=== PATIENT | male | born 1940 | race Caucasian/White ===

== ENCOUNTER 2022-09-25 13:11 | Outpatient (RCR) | payer MEDICARE, SELFPAY ==
--- NOTE | 2022-09-25 15:35 | PTOPEVAL1 ---
Assessment and note entered by Naomy Casas, PT Evaluation Information Assessment Status Evaluation Diagnosis Vertigo, deconditioned Onset 09/25/22 Subjective Information Javier Rodriguez reports he has been getting dizzy when he bends over or gets up out of his recliner. He also notes weakness in his legs and unsteadiness when he is walking. He does not use an assistive device. He has fallen a few times. He fell last night when he bent over to pick something up. He fell from a bent forward position to his knees and did not get injured. He had a cardiac stent placed about 6 months ago and had a fall when coming home after the stent was placed due to blood pressure. Reported Pain Level Pain Score 0: Self Report Assessment PT Clinical Summary Javier Rodriguez presents with c/o dizziness when he stands up or bends over as well as weakness and unsteadiness in his legs. He has had 2-3 falls due to the symptoms. He demonstrates weakness in bilateral hip and knee muscles, decreased core strength, decreased balance, and vertigo symptoms with left Colleen Hallpike test. He also presents with a change of >20 mmHg in systolic blood pressure when transitioning from sitting to standing indicating possible orthostatic hypotension. His Tinetti balance scores indicates he is a high fall risk. He will benefit from skilled PT for positional treatments for positional vertigo, balance training, LE and core strengthening, and education for safety with transfers and fall hazards. Plan of Care Interventions Manual Therapy,Neuro Re-education,Patient/ Caregiver Educati,Therapeutic Activities, Therapeutic Exercise,Other Other Interventions vestibular rehabilitation PT Services Indicated Yes Treatment Frequency and 2 times a week for 10 visits Duration These treatments will address the objective and functional deficits as defined above. The patient will be advanced safely and appropriately in order for the patient to progress towards his/her prior level of function. Additional exercises will be introduced and as well as a comprehensive home exercise program upon discharge, if needed, ?to ensure carryover of functional gains achieved in the clinic. This treatment plan has been reviewed and agreement upon by the patient.
--- NOTE | 2022-10-28 14:27 | PTOPPROG ---
Assessment and note entered by Naomy Casas, PT Evaluation Information Assessment Status Progress Diagnosis Vertigo, deconditioned Onset 09/25/22 Subjective Information Javier Rodriguez reports he feels like his legs are getting stronger but he is still getting dizzy when he gets up too fast. He feels he has less dizziness when turning his head since starting PT as well. He has not had any falls in the last couple weeks. He feels like he needs to continue PT to further improve his leg strength, endurance, and balance. Assessment PT Clinical Summary Javier Rodriguez has completed 10 skilled PT visits for vertigo and deconditioned state. He is reporting less dizziness and improved leg strength since initiating PT. He is still having difficulty with quick transfers, endurance, and LE strength. He objectively demonstrates improved LE strength, improved balance with the Tinetti balance screen, and shows no signs of orthostatic hypotension today. He continues to have decreased endurance, decreased LE strength, and decreased balance. His Tinetti balance score shows he is a moderate fall risk. He will continue to benefit from skilled PT to further address ongoing deficits. Plan of Care Interventions Neuro Re-education,Patient/Caregiver Educati, Therapeutic Activities,Therapeutic Exercise Other Interventions vestibular rehabilitation PT Services Indicated Yes Treatment Frequency and 2 times a week for 10 visits Duration These treatments will address the objective and functional deficits as defined above. The patient will be advanced safely and appropriately in order for the patient to progress towards his/her prior level of function. Additional exercises will be introduced and as well as a comprehensive home exercise program upon discharge, if needed, ?to ensure carryover of functional gains achieved in the clinic. This treatment plan has been reviewed and agreement upon by the patient.
--- NOTE | 2022-11-18 13:39 | PTOPDC ---
Assessment and note entered by Naomy Casas, PT Evaluation Information Assessment Status Discharge Diagnosis vertigo, deconditioned Onset 09/25/22 Subjective Information Javier Rodriguez reports his legs feel stronger and he can do daily activities easier since he started PT. He is now able to now stand the whole time he takes a shower and is able to dry off without leg fatigue. He also can get up from his chair easier and does not have to use his hands to push up. He has not had any falls recently and notes better balance. He still feels dizzy if he gets up too fast. He also reports not feeling well today due to allergies. Reported Pain Level Pain Score 0: Self Report Assessment PT Clinical Summary Javier Rodriguez has completed 15 skilled PT visits. He is reporting improved balance and improved LE strength leading to improved ability to perform daily activities. He has not had any falls recently and notes less dizziness. He objectively demonstrates improved LE strength to 5/5, improved time on the 5 times sit to stand test, and improved score on the Tinetti Balance scale. His scores on standardized balance tests now indicate a low fall risk. He did have a regression in his distance on the 6 minute walk test however, he is reporting not feeling well due to allergies. He will be discharged to an independent home exercise program. Plan of Care PT Services Indicated Yes
== END 2022-11-18 13:57 | disposition home or self-care (01) ==
LOC: CHSPT 13:11
PROVIDERS: Visit Provider Nurse Practitioner Family
DX: R29.898 Other symptoms and signs involving the musculoskeletal system (principal); R53.81 Other malaise; I50.9 Heart failure, unspecified; J44.9 Chronic obstructive pulmonary disease, unspecified; R42 Dizziness and giddiness; Z91.81 History of falling
CPT/HCPCS: 97110; 97112; 97161; 97530; 97750